=== PATIENT | female | born 1975 | race African-American/Black ===

== ENCOUNTER 2018-11-01 19:16 | Emergency (ER) | payer OTHER ==
[~2018-11-01] VITALS: Ht 165.1 cm; Wt 110.2 kg
[2018-11-01 20:03] LABS: ABSOLUTE NEUTROPHILS 5.2 thou/uL (1.4-8.2); BASOPHILS 1.1 % (0.0-2.0); EOSINOPHILS 1.7 % (0.0-3.0); HEMATOCRIT 44.3 % (37.0-47.0); LYMPHOCYTES 28.8 % (24.0-44.0); MCH 28.5 pg (26.0-34.0); MCHC 33.9 g/dL (28.0-37.0); MCV 84.1 fL (80.0-100.0); MONOCYTES 7.2 % (1.0-8.0); PLATELET COUNT 238 thou/uL (150-400); POLYS 61.2 % (36.0-66.0); RBC 5.27 mil/uL (4.20-5.00); RDW 13.5 % (10.5-14.5); WBC 8.5 thou/uL (4.0-11.0)
[2018-11-01 20:04] LABS: ANION GAP 10 mmol/L (7-16); BUN 15 mg/dL (7-18); CALCIUM 10.1 mg/dL (8.5-10.1); CHLORIDE 103 mmol/L (98-107); CO2 27 mmol/L (21-32); CREATININE 1.1 mg/dL (0.6-1.0); GLUCOSE 116 mg/dL (74-106); POTASSIUM 3.9 mmol/L (3.5-5.1); SODIUM 140 mmol/L (136-145)
[2018-11-01 20:10] LABS: ALBUMIN 4.3 g/dL (3.4-5.0); DIRECT BILIRUBIN < 0.1 mg/dL (<0.1-0.3); SGOT 21 U/L (15-37); SGPT 32 U/L (30-65); TOTAL BILIRUBIN 0.4 mg/dL (<0.1-1.0); TOTAL PROTEIN 8.3 g/dL (6.4-8.2)
[2018-11-01] MEDS ORDERED: LOPRESSOR25 PO ×2 (20:18→21:01)
[2018-11-01] MEDS ORDERED: LISINOPRIL20 MG PO ×2 (20:19→21:01)
[2018-11-01] MEDS ORDERED: CLONIDINE0.1 PO ×2 (20:20→21:01)
[2018-11-01 20:22] LABS: URINE BILIRUBIN NEGATIVE (Negative); URINE BLOOD NEGATIVE (Negative); URINE CLARITY CLEAR; URINE COLOR YELLOW; URINE GLUCOSE-RANDOM* NEGATIVE (Negative); URINE KETONES TRACE (Negative); URINE LEUKOCYTES-REFLEX TRACE (Negative); URINE NITRITE-REFLEX NEGATIVE (Negative); URINE PROTEIN (DIPSTICK) TRACE (Negative); URINE SPECIFIC GRAVITY >= 1.030 (1.005-1.035); URINE UROBILINOGEN 0.2 E.U./dl (0.2-1.0)
[2018-11-01 22:02] VITALS: BP 151/91
--- NOTE | 2018-11-02 07:39 | EKG ---
[place] [address] [facility] [place] [address] ELECTROCARDIOGRAM REPORT Name: MARIANO BARTON Room #: [facility]#: [id number] ������������������ Admission: 11/01/18 ������������������ Attend Phys: Discharge: 11/01/18 ������������������ Date of : 71 Report #: [id number] ����������������������������������������������������������������� [id number] THIS REPORT FOR: //name// [facility] ED Test Date: 2018-11-01 Test Time: 20:07:31 Pat Name: MARIANO BARTON Department: Room: Gender: F Machine Operator Helper: HONORIO : 1975 Requested By: Melissa Barrett Order Number: [id number] MD: Elkin Mc Measurements Intervals [place] Rate: 71 P: 66 W[place]: 182 QRS: 66 QRSD: 100 T: 26 QT: 441 QTc: 480 Interpretive Statements Sinus rhythm Borderline prolonged QT interval No previous ECG available for comparison Electronically Signed On 11-02-2018 7:39:38 CDT by Elkin Mc [email or web address] ��������������������������������������������� <ELECTRONICALLY SIGNED> ���������������������������������������� By: Elkin Mc MD, [facility] ��������������������������������������������� 11/02/18 0739 06 06 Elkin Mc MD, FACC /EPI
== END 2018-11-01 21:40 | disposition home or self-care (01) ==
LOC: ER 19:16
PROVIDERS: Emergency Medicine
DX: I10 Essential (primary) hypertension (principal); R51 Headache; M79.10 Myalgia, unspecified site; Z88.8 Allergy status to other drugs, medicaments and biological substances